=== PATIENT | male | born 1985 | race Hispanic/Latino ===

== ENCOUNTER 2022-09-14 02:20 | Emergency (ER) | payer OTHER ==
[~2022-09-14] VITALS: Ht 180.3 cm; Wt 175.1 kg
[2022-09-14] MEDS ORDERED: BUPIVACAINE/PF 0.5% 10ML VIAL IJ STA (02:44)
[2022-09-14] MEDS ORDERED: KETOROLAC 60 MG VIAL (30MG/ML) IM ONE (03:00)
[2022-09-14] MEDS ORDERED: TRIAMCINOLONE ACETONIDE 40 MG/ML 1ML VIAL SQ ONE (03:00)
[2022-09-14] MEDS ORDERED: BUPIVACAINE/PF 0.5% 30ML VIAL ONE (03:12)
[2022-09-14] MEDS ORDERED: CYCL10TA16 PO (03:53)
[2022-09-14] MEDS ORDERED: IBUP-2071 PO (03:53)
[2022-09-14 03:55] VITALS: BP 136/79
== END 2022-09-14 04:31 | disposition home or self-care (01) ==
LOC: EDH 02:20
DX: M54.9 Dorsalgia, unspecified (principal); M54.30 Sciatica, unspecified side; E11.9 Type 2 diabetes mellitus without complications; E66.09 Other obesity due to excess calories; Z68.43 Body mass index [BMI] 50.0-59.9, adult
CPT/HCPCS: 99284; 20552; 96372; J3301; J1885; J3490

== ENCOUNTER 2022-09-16 23:18 | Emergency (ER) | payer OTHER ==
[~2022-09-16] VITALS: Ht 180.3 cm; Wt 178.7 kg
[~2022-09-16 23:18] MED LIST: CYCL10TA16 PO; IBUP-2071 PO
[2022-09-16 23:19] VITALS: BP 141/86
[2022-09-16] MEDS ORDERED: ACET-2079 PO (23:46)
[2022-09-17] MEDS ORDERED: KETOROLAC 30MG VIAL (30MG/ML) IM ONE
[2022-09-17] MEDS ORDERED: ACETAMINOPHEN WITH CODEINE 1 TAB TAB PO ONE
[2022-09-17] MEDS ORDERED: TRAMADOL HCL 50 MG TABLET PO ONE
== END 2022-09-17 00:04 | disposition home or self-care (01) ==
LOC: EDH 23:18
DX: M54.41 Lumbago with sciatica, right side (principal); F41.9 Anxiety disorder, unspecified; E11.9 Type 2 diabetes mellitus without complications; E66.9 Obesity, unspecified; Z79.1 Long term (current) use of non-steroidal anti-inflammatories (NSAID); Z68.43 Body mass index [BMI] 50.0-59.9, adult
CPT/HCPCS: 99283; 96372; J1885

== ENCOUNTER 2022-09-23 00:31 | Emergency (ER) | payer OTHER ==
[~2022-09-23] VITALS: Ht 180.3 cm; Wt 176.5 kg
[~2022-09-23 00:31] MED LIST changes: +ACET-2079 PO
[2022-09-23 00:36] VITALS: BP 154/91
[2022-09-23] MEDS ORDERED: IBUP-1493 PO (01:18)
[2022-09-23] MEDS ORDERED: CYCL-309 PO (01:18)
[2022-09-23] MEDS ORDERED: MECL-262 PO (01:19)
== END 2022-09-23 01:39 | disposition home or self-care (01) ==
LOC: EDH 00:31
DX: M54.6 Pain in thoracic spine (principal); R42 Dizziness and giddiness; E11.9 Type 2 diabetes mellitus without complications; E66.9 Obesity, unspecified; Z79.1 Long term (current) use of non-steroidal anti-inflammatories (NSAID); Z82.49 Family history of ischemic heart disease and other diseases of the circulatory system; Z68.43 Body mass index [BMI] 50.0-59.9, adult

== ENCOUNTER 2022-09-28 01:27 | Emergency (ER) | payer BC, OTHER ==
[~2022-09-28] VITALS: Ht 177.8 cm; Wt 175.1 kg
[~2022-09-28 01:27] MED LIST changes: +CYCL-309 PO; +IBUP-1493 PO; +MECL-262 PO
[2022-09-28] MEDS ORDERED: FAMOTIDINE 20MG VIAL IV ONE (02:00)
[2022-09-28] MEDS ORDERED: 0.9%NACL 1000ML 1,000 ML IV ONE (02:00)
[2022-09-28 02:01] LABS: BASOPHILS % (AUTO) 0.5 % (0.0-5.0); EOSINOPHILS % (AUTO) 0.7 % (0.0-8.0); HEMATOCRIT 41.5 % (42-54); LYMPHOCYTES % (AUTO) 32.7 % (21.0-51.0); MEAN CORPUSCULAR HEMOGLOBIN 26.6 pg (27.0-33.0); MEAN CORPUSCULAR HGB CONC 32.5 g/dL (32.0-36.0); MEAN CORPUSCULAR VOLUME 81.7 fL (79-99); MONOCYTES % (AUTO) 4.9 % (3.0-13.0); NEUTROPHILS % (AUTO) 60.8 % (40.0-77.0); PLATELET COUNT (AUTO) 400 K/uL (130-400); RED BLOOD CELL COUNT(AUTO) 5.08 MIL/uL (4.50-6.20); RED CELL DISTRIBUTION WIDTH 14.1 % (11.0-15.5); WHITE BLOOD COUNT (AUTO) 11.2 K/uL (4.8-10.8)
[2022-09-28 02:10] LABS: APPEARANCE,URINE CLEAR (CLEAR); BILIRUBIN,URINE NEGATIVE (NEGATIVE); COLOR,URINE LIGHT-YELLOW (YELLOW); CREATININE 0.9 mg/dL (0.5-1.5); GLUCOSE, URINE (UA) 30 mg/dL (NEGATIVE); KETONES,URINE NEGATIVE (NEGATIVE); LEUKOCYTE ESTERASE ,URINE NEGATIVE Leu/uL (NEGATIVE); NITRATE,URINE NEGATIVE (NEGATIVE); OCCULT BLOOD,URINE NEGATIVE (NEGATIVE); PH,URINE 5.5 (5.0-8.0); POTASSIUM 4.2 mmol/L (3.5-5.1); PROTEIN,URINE NEGATIVE (NEGATIVE); UROBILINOGEN,URINE 0.2 mg/dL (0.2-1.0)
[2022-09-28 02:15] LABS: ALBUMIN 3.1 g/dL (3.5-5.0); TOTAL PROTEIN, SERUM 7.4 g/dL (6.0-8.3)
[2022-09-28] MEDS ORDERED: LOPE2CAP PO (02:55)
[2022-09-28 02:58] VITALS: BP 132/74
[2022-09-28] MEDS ORDERED: LOPERAMIDE HCL 2 MG CAP PO ONE (03:00)
== END 2022-09-28 03:04 | disposition home or self-care (01) ==
LOC: EDH 01:27
DX: K52.9 Noninfective gastroenteritis and colitis, unspecified (principal); E11.9 Type 2 diabetes mellitus without complications; Z79.899 Other long term (current) drug therapy; Z98.890 Other specified postprocedural states
CPT/HCPCS: 99284; 96374; 80053; 83690; 85025; 81003; 36415; J3490

== ENCOUNTER 2022-10-15 23:40 | Emergency (ER) | payer BC ==
[~2022-10-15] VITALS: Ht 180.3 cm; Wt 176.0 kg
[~2022-10-15 23:40] MED LIST changes: +LOPE2CAP PO
[2022-10-16] MEDS ORDERED: KETOROLAC 30MG VIAL (30MG/ML) IM ONE (00:30)
[2022-10-16] MEDS ORDERED: CYCLOBENZAPRINE HCL 10 MG TABLET PO ONE (00:30)
[2022-10-16] MEDS ORDERED: CYCL-309 PO (03:18)
[2022-10-16] MEDS ORDERED: IBUP-1493 PO (03:18)
[2022-10-16 03:24] VITALS: BP 132/74
== END 2022-10-16 03:38 | disposition home or self-care (01) ==
LOC: EDH 23:40
DX: M54.50 Low back pain, unspecified (principal); E11.9 Type 2 diabetes mellitus without complications; Z79.1 Long term (current) use of non-steroidal anti-inflammatories (NSAID); W18.39XA Other fall on same level, initial encounter; Y93.89 Activity, other specified; Y92.89 Other specified places as the place of occurrence of the external cause; Y99.8 Other external cause status
CPT/HCPCS: 99284; 72128; 96372; J1885

== ENCOUNTER 2023-01-23 19:06 | Emergency (ER) | payer BC ==
[~2023-01-23] VITALS: Ht 180.3 cm; Wt 175.1 kg
[2023-01-23] MEDS ORDERED: GABA300C PO (19:54)
[2023-01-23] MEDS ORDERED: CYCL-309 PO (19:54)
[2023-01-23] MEDS ORDERED: IBUP-1493 PO (19:54)
[2023-01-23] MEDS ORDERED: LIDOCAINE 5% TOPICAL PATCH TP ONE (20:00)
[2023-01-23] MEDS ORDERED: KETOROLAC 60 MG VIAL (30MG/ML) IM ONE (20:00)
[2023-01-23 21:08] VITALS: BP 135/81; PULSE 75; RESP 17; O2SAT 98
[2023-01-23] MEDS ORDERED: LIDOP TD (21:13)
== END 2023-01-23 21:20 | disposition home or self-care (01) ==
LOC: EDH 19:06
DX: M54.50 Low back pain, unspecified (principal); E11.9 Type 2 diabetes mellitus without complications; Z79.1 Long term (current) use of non-steroidal anti-inflammatories (NSAID); Z79.899 Other long term (current) drug therapy
CPT/HCPCS: 99284; 72110; 96372; J1885

== ENCOUNTER 2023-07-19 18:24 | Emergency (ER) | payer BC, OTHER ==
[~2023-07-19] VITALS: Ht 180.3 cm; Wt 166.9 kg
[~2023-07-19 18:24] MED LIST changes: +GABA300C PO; +LIDOP TD
[2023-07-19 19:21] LABS: ADD UA MICROSCOPIC YES; APPEARANCE,URINE CLEAR (CLEAR); BILIRUBIN,URINE NEGATIVE (NEGATIVE); COLOR,URINE YELLOW (YELLOW); GLUCOSE, URINE (UA) >=1000 mg/dL (NEGATIVE); KETONES,URINE NEGATIVE (NEGATIVE); LEUKOCYTE ESTERASE ,URINE NEGATIVE Leu/uL (NEGATIVE); NITRATE,URINE NEGATIVE (NEGATIVE); OCCULT BLOOD,URINE NEGATIVE (NEGATIVE); PH,URINE 5.5 (5.0-8.0); PROTEIN,URINE 20 mg/dL (NEGATIVE); UROBILINOGEN,URINE 0.2 mg/dL (0.2-1.0)
[2023-07-19 19:25] LABS: BACTERIA,URINE FEW /HPF (None Seen); MUCUS,URINE MANY LPF (None Seen); RBC,URINE 0-1 /HPF (0-1); SQUAMOUS EPITHELIAL CELL,UR FEW /HPF (0-2)
[2023-07-19 19:47] LABS: BASOPHILS # (AUTO) 0.05 K/uL (0.00-0.20); BASOPHILS % (AUTO) 0.5 % (0.0-5.0); EOSINOPHILS # (AUTO) 0.22 K/uL (0.00-0.70); EOSINOPHILS % (AUTO) 2.1 % (0.0-8.0); HEMATOCRIT 43.1 % (42-54); IMMATURE GRANULOCYTE ABSOLUTE 0.06 K/uL (0-1); LYMPHOCYTES # (AUTO) 2.8 K/uL (1.0-4.8); LYMPHOCYTES % (AUTO) 26.6 % (21.0-51.0); MEAN CORPUSCULAR HEMOGLOBIN 25.9 pg (27.0-33.0); MONOCYTES # (AUTO) 0.5 K/uL (0.1-1.0); MONOCYTES % (AUTO) 4.7 % (3.0-13.0); NEUTROPHILS % (AUTO) 65.5 % (40.0-77.0); PLATELET COUNT (AUTO) 473 K/uL (130-400); RED BLOOD CELL COUNT(AUTO) 5.32 MIL/uL (4.50-6.20); RED CELL DISTRIBUTION WIDTH 14.5 % (11.0-15.5); WHITE BLOOD COUNT (AUTO) 10.6 K/uL (4.8-10.8)
[2023-07-19 20:02] LABS: CREATININE 0.9 mg/dL (0.5-1.5); POTASSIUM 4.1 mmol/L (3.5-5.1)
[2023-07-19 21:14] VITALS: BP 132/78; PULSE 78; RESP 18; O2SAT 98
[2023-07-19] MEDS ORDERED: IBUP-2077 PO (21:30)
== END 2023-07-19 21:55 | disposition home or self-care (01) ==
LOC: EDH 18:24
DX: R59.0 Localized enlarged lymph nodes (principal); E11.65 Type 2 diabetes mellitus with hyperglycemia; R81 Glycosuria; Z79.1 Long term (current) use of non-steroidal anti-inflammatories (NSAID); Z79.899 Other long term (current) drug therapy
CPT/HCPCS: 36415; 76882; 80048; 81001; 85025

== ENCOUNTER 2023-08-08 19:00 | Emergency (ER) | payer BC, OTHER ==
[~2023-08-08] VITALS: Ht 180.3 cm; Wt 163.7 kg
[~2023-08-08 19:00] MED LIST changes: +IBUP-2077 PO
[2023-08-08 19:29] LABS: BASOPHILS # (AUTO) 0.05 K/uL (0.00-0.20); BASOPHILS % (AUTO) 0.3 % (0.0-5.0); EOSINOPHILS # (AUTO) 0.15 K/uL (0.00-0.70); HEMATOCRIT 43.5 % (42-54); IMMATURE GRANULOCYTE ABSOLUTE 0.05 K/uL (0-1); LYMPHOCYTES # (AUTO) 2.8 K/uL (1.0-4.8); LYMPHOCYTES % (AUTO) 18.4 % (21.0-51.0); MEAN CORPUSCULAR HEMOGLOBIN 26.3 pg (27.0-33.0); MEAN CORPUSCULAR HGB CONC 32.4 g/dL (32.0-36.0); MONOCYTES # (AUTO) 0.5 K/uL (0.1-1.0); MONOCYTES % (AUTO) 3.4 % (3.0-13.0); NEUTROPHILS # (AUTO) 11.8 K/uL (1.8-7.7); NEUTROPHILS % (AUTO) 76.6 % (40.0-77.0); PLATELET COUNT (AUTO) 479 K/uL (130-400); RED BLOOD CELL COUNT(AUTO) 5.37 MIL/uL (4.50-6.20); WHITE BLOOD COUNT (AUTO) 15.4 K/uL (4.8-10.8)
[2023-08-08 19:43] LABS: CREATININE 0.9 mg/dL (0.5-1.5); POTASSIUM 3.8 mmol/L (3.5-5.1)
[2023-08-08 19:44] LABS: ADD UA MICROSCOPIC YES; APPEARANCE,URINE CLEAR (CLEAR); BILIRUBIN,URINE NEGATIVE (NEGATIVE); COLOR,URINE LIGHT-YELLOW (YELLOW); GLUCOSE, URINE (UA) >=1000 mg/dL (NEGATIVE); KETONES,URINE 5 mg/dL (NEGATIVE); LEUKOCYTE ESTERASE ,URINE NEGATIVE Leu/uL (NEGATIVE); NITRATE,URINE NEGATIVE (NEGATIVE); OCCULT BLOOD,URINE NEGATIVE (NEGATIVE); PH,URINE 5.5 (5.0-8.0); PROTEIN,URINE 10 mg/dL (NEGATIVE); UROBILINOGEN,URINE 0.2 mg/dL (0.2-1.0)
[2023-08-08 19:50] LABS: ALBUMIN 3.4 g/dL (3.5-5.0); BILIRUBIN,TOTAL 0.3 mg/dL (0.2-1.0); TOTAL PROTEIN, SERUM 7.6 g/dL (6.0-8.3)
[2023-08-08 20:15] LABS: BACTERIA,URINE FEW /HPF (None Seen); MUCUS,URINE FEW LPF (None Seen); RBC,URINE 0-1 /HPF (0-1); SQUAMOUS EPITHELIAL CELL,UR FEW /HPF (0-2)
[2023-08-08 22:16] VITALS: BP 155/87; PULSE 109; RESP 18; O2SAT 99
[2023-08-08 23:00] LABS: SARS-CoV-2, RNA, NAAT NEGATIVE SARS CoV-2 (NEGATIVE)
[2023-08-08] MEDS ORDERED: MORPHINE 2 MG SYG IVP ONE (23:00)
[2023-08-08 23:05] LABS: INFLUENZA TYPE A Negative For Type A (NEGATIVE); INFLUENZA TYPE B Negative For Type B (NEGATIVE)
[2023-08-08 23:12] LABS: RAPID GROUP A STREP positive (NEGATIVE)
[2023-08-08] MEDS ORDERED: METO-296 PO (23:52)
[2023-08-08] MEDS ORDERED: PENI500T2 PO (23:52)
[2023-08-09] MEDS: FAMOTIDINE 20MG VIAL IV ONE (00:08)
[2023-08-09] MEDS: CEFTRIAXONE 2GM VIAL IVPB ONE (00:08)
[2023-08-09] MEDS: METOCLOPRAMIDE 10 MG/2 ML VIAL IVP ONE (00:08)
[2023-08-09] MEDS: 0.9%NACL 1000ML 1,000 ML IV ONE (00:08)
== END 2023-08-09 00:50 | disposition home or self-care (01) ==
LOC: EDH 19:00
DX: J02.0 Streptococcal pharyngitis (principal); K76.0 Fatty (change of) liver, not elsewhere classified; E11.9 Type 2 diabetes mellitus without complications; Z79.1 Long term (current) use of non-steroidal anti-inflammatories (NSAID); Z79.899 Other long term (current) drug therapy; Z20.822 Contact with and (suspected) exposure to COVID-19
CPT/HCPCS: 99284; 74176; 71045; 87635; 82550; 84484; 80053; 83690; 85025; 87880; 87804 ×2; 81001; 36415; 93005; 96365; 96375; J3490; J7030; J0696; J2765

== ENCOUNTER 2024-03-14 19:37 | Emergency (ER) | payer BC, OTHER ==
[~2024-03-14] VITALS: Ht 180.3 cm; Wt 157.4 kg
[~2024-03-14 19:37] MED LIST changes: +METO-296 PO; +PENI500T2 PO
[2024-03-14 20:45] LABS: RAPID GROUP A STREP negative (NEGATIVE)
[2024-03-14 21:08] LABS: INFLUENZA TYPE A NEGATIVE FOR TYPE A (NEGATIVE); INFLUENZA TYPE B NEGATIVE FOR TYPE B (NEGATIVE)
[2024-03-14 21:11] VITALS: BP 138/78; PULSE 92; RESP 18; TEMP 98.3; O2SAT 99
[2024-03-14 21:12] LABS: COVID19 (SARS ANTIGEN RAPID) PRESUMPTIVE NEGATIVE (NEGATIVE)
[2024-03-14] MEDS ORDERED: ALBUHFA IH (21:16)
== END 2024-03-14 21:46 | disposition home or self-care (01) ==
LOC: EDH 19:37
DX: J06.9 Acute upper respiratory infection, unspecified (principal); B97.89 Other viral agents as the cause of diseases classified elsewhere; E11.9 Type 2 diabetes mellitus without complications; Z20.822 Contact with and (suspected) exposure to COVID-19; Z79.899 Other long term (current) drug therapy
CPT/HCPCS: 71045; 87426; 87804; 87880

== ENCOUNTER 2024-04-23 21:46 | Emergency (ER) | payer BC, OTHER ==
[~2024-04-23] VITALS: Ht 180.3 cm; Wt 156.0 kg
[~2024-04-23 21:46] MED LIST changes: +ALBUHFA IH
[2024-04-23 23:44] VITALS: BP 157/88; PULSE 87; RESP 17; TEMP 97.8; O2SAT 96
[2024-04-24] MEDS ORDERED: CIPR500T10 PO (00:08)
== END 2024-04-24 00:19 | disposition home or self-care (01) ==
LOC: EDH 21:46
DX: S99.821A Other specified injuries of right foot, initial encounter (principal); E11.9 Type 2 diabetes mellitus without complications; E66.01 Morbid (severe) obesity due to excess calories; Z79.1 Long term (current) use of non-steroidal anti-inflammatories (NSAID); Z79.899 Other long term (current) drug therapy; W22.8XXA Striking against or struck by other objects, initial encounter; Y93.89 Activity, other specified; Y92.89 Other specified places as the place of occurrence of the external cause; Y99.8 Other external cause status
CPT/HCPCS: 73630

== ENCOUNTER 2024-06-30 19:31 | Emergency (ER) | payer BC, OTHER ==
[~2024-06-30] VITALS: Ht 162.6 cm; Wt 160.1 kg
[~2024-06-30 19:31] MED LIST changes: +CIPR500T10 PO
--- NOTE | 2024-06-30 20:18 | HMCIMG ---
SHOULDER COMP 2+VWS LT CLINICAL HISTORY: pain COMPARISON: None TECHNIQUE: 2 images were obtained. FINDINGS: No obvious fracture or dislocation. No joint effusion. The soft tissues appear unremarkable. No radiopaque foreign bodies. IMPRESSION: No acute findings.
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
[2024-06-30] MEDS ORDERED: NAPR-1505 PO (20:26)
[2024-06-30 21:24] VITALS: BP 120/75; PULSE 90; RESP 16; TEMP 98.3; O2SAT 98
[2024-06-30] MEDS: ORPHENADRINE 60MG/2ML IM ONE (21:30)
[2024-06-30] MEDS: TRIAMCINOLONE ACETONIDE 40 MG/ML 1ML VIAL IM ONE (21:32)
== END 2024-06-30 21:43 | disposition home or self-care (01) ==
LOC: EDH 19:31
DX: S46.812A Strain of other muscles, fascia and tendons at shoulder and upper arm level, left arm, initial encounter (principal); E11.9 Type 2 diabetes mellitus without complications; Z79.1 Long term (current) use of non-steroidal anti-inflammatories (NSAID); Z79.899 Other long term (current) drug therapy; X58.XXXA Exposure to other specified factors, initial encounter; Y93.89 Activity, other specified; Y92.89 Other specified places as the place of occurrence of the external cause; Y99.8 Other external cause status
CPT/HCPCS: 99284; 73030; 96372 ×2; J3301; J2360

== ENCOUNTER 2024-07-12 17:41 | Emergency (ER) | payer BC ==
[~2024-07-12] VITALS: Ht 180.3 cm; Wt 154.2 kg
[~2024-07-12 17:41] MED LIST changes: +NAPR-1505 PO
--- NOTE | 2024-07-12 17:48 | ERN ---
ED Note History of Present Illness Stated Complaint: LEFT SHOULDER PAIN Chief Complaint: Shoulder Injury/Pain Time Seen by MD: 17:44 Dictation: Patient is a 38-year-old male here with left anterior deltoid pain that radiates down the medial left bicep onset for four weeks. He states he was carrying a car battery when he felt the pain. States he has already been to see his primary care doctor put him on baclofen and is trying to get him to see a orthopedic surgeon however it has been difficult. He states he is currently taken baclofen only for pain said it is not helping. Allergies: Coded Allergies: No Known Drug Allergies (Unverified Allergy, Unknown, 09/14/22) Home Meds Active Scripts Naproxen (Naproxen) 375 Mg Tablet.dr, 375 MG PO BID for 7 Days, #14 TAB Prov:BRADY RIVAS MD 06/30/24 Ciprofloxacin HCl (Ciprofloxacin HCl) 500 Mg Tablet, 1 TAB PO BID for 7 Days, #14 TAB 0 Refills Prov:ARASELI MEJIA MD 04/24/24 Albuterol Sulfate (Ventolin Hfa/Proventil Hfa/Proair Hfa) 90 Mcg Puff, 1-2 PUFF IH Q4H for 5 Days, #1 INH 0 Refills PHARMACY TO DISPENSE 1 INHALER FOR USE Prov:GINETTE BRIONES 03/14/24 Metoclopramide HCl (Reglan) 10 Mg Tablet, 10 MG PO QIDP PRN for NAUSEA, #30 TAB 2 Refills Prov:SHERRON GEE Sr., MD 08/08/23 Penicillin V Potassium (Penicillin V Potassium) 500 Mg Tablet, 1 TAB PO QID for 10 Days, #40 TAB 0 Refills Prov:SHERRON GEE Sr., MD 08/08/23 Ibuprofen (Ibuprofen 800 mg Tab) 800 Mg Tab, 800 MG PO Q8H PRN for fever or pain, #30 TAB 0 Refills Prov:YOBANI QUINONES NP 07/19/23 Lidocaine (Lidoderm Patch 5%) 1 Patch Patch, 1 PATCH TD DAILY for 30 Days, #30 ADH.PATCH 0 Refills Prov:BERNARDO SCHAFFER MD 01/23/23 Cyclobenzaprine HCl (Cyclobenzaprine HCl) 10 Mg Tablet, 10 MG PO TIDP PRN for PAIN, #30 TAB Prov:BERNARDO SCHAFFER MD 01/23/23 Ibuprofen (Motrin/Advil) 800 Mg Tab, 800 MG PO TID, #30 TAB Prov:BERNARDO SCHAFFER MD 01/23/23 Gabapentin (Neurontin) 300 Mg Capsule, 300 MG PO TID, #60 CAP Prov:BERNARDO SCHAFFER MD 01/23/23 Cyclobenzaprine HCl (Cyclobenzaprine HCl) 10 Mg Tablet, 10 MG PO TIDP PRN for PAIN, #30 TAB Prov:BERNARDO SCHAFFER MD 10/16/22 Ibuprofen (Motrin/Advil) 800 Mg Tab, 800 MG PO TID, #30 TAB Prov:BERNARDO SCHAFFER MD 10/16/22 Loperamide HCl (Loperamide) 2 Mg Capsule, 2 MG PO QID for loose stools, #30 CAP Prov:MIRIAN RIBEIRO MD 09/28/22 Meclizine HCl (Antivert) 25 Mg Tab.chew, 25 MG PO TIDP PRN for VERTIGO, #50 TAB.CHEW Prov:BERNARDO SCHAFFER MD 09/23/22 Cyclobenzaprine HCl (Cyclobenzaprine HCl) 10 Mg Tablet, 10 MG PO TID, #30 TAB Prov:BERNARDO SCHAFFER MD 09/23/22 Ibuprofen (Motrin/Advil) 800 Mg Tab, 800 MG PO TIDP PRN for PAIN, #30 TAB Prov:BERNARDO SCHAFFRE MD 09/23/22 Acetaminophen with Codeine (Acetaminophen-Cod #3 Tablet) 1 Each Tablet, 1 TAB PO Q4H PRN for PAIN, #7 TAB Prov:VLADIMIR MCLEAN [employer] 09/16/22 Cyclobenzaprine HCl (Flexeril) 10 Mg Tab, 10 MG PO TID for 10 Days, #30 TAB Prov:MARYSOL YEAGER MD 09/14/22 Ibuprofen (Ibuprofen) 800 Mg Tablet, 800 MG PO Q8H PRN for PAIN, #30 TAB Prov:MARYSOL YEAGER MD 09/14/22 Past Medical History Past Medical History: Diabetes-Type II Additional Past Medical Hx: HX OF SCIATIC NERVE PAIN, HERNIATED DISK IN BACK Surgical History: None Family History: HTN Social History: Negative, Lives with family RN Note Reviewed/Agreed w/PFSH: Yes Review of System Dictation CONSTITUTIONAL: NEGATIVE EXCEPT FOR HPI HEAD/FACE: NEGATIVE EXCEPT FOR HPI EENT: NEGATIVE EXCEPT FOR HPI RESPIRATORY: NEGATIVE EXCEPT FOR HPI GASTROINTESTINAL/ABDOMINAL: NEGATIVE EXCEPT FOR HPI GENITOURINARY: NEGATIVE EXCEPT FOR HPI MUSCULOSKELETAL: NEGATIVE EXCEPT FOR HPI LEFT ANTERIOR SHOULDER PAIN RUNNING DOWN LEFT MEDIAL BICEPS INTEGUMENTARY: NEGATIVE EXCEPT FOR HPI NEUROLOGICAL/PSYCH: NEGATIVE EXCEPT FOR HPI HEMATOLOGIC/LYMPHATIC: NEGATIVE EXCEPT FOR HPI ALL SYSTEMS NEGATIVE, EXCEPT NOTED ABOVE. 13 POINT REVIEW OF SYSTEMS ASSESSED AND ALL NEGATIVE EXCEPT FOR ABOVE. Initial Vital Sign VS Vital Signs Date Time Temp Pulse Resp B/P (MAP) Pulse Ox O2 Delivery O2 Flow Rate FiO2 07/12/24 17:43 97.9 94 16 132/93 99 Room Air 0 Physical Exam Dictation VITAL SIGNS REVIEWED GENERAL APPEARANCE: ALERT, ORIENTED X 3, MILD ACUTE DISTRESS, WELL DEVELOPED, NOURISHED. OBESE HEAD AND FACE: NON-TRAUMATIC. EYES: PERRL, PINK CONJUNCTIVAS, EYELID NO TRAUMA, ANTERIOR CHAMBER WITH ARCUS SENILIS. EARS: PINNAS INTACT AND NO SIGNS OF TRAUMA OR ERYTHEMA EAR CANALS CLEAR AND NO DISCHARGE TM NO ERYTHEMA NOSE: NO DISCHARGE, NO BLEEDING. OROPHARYNX: MOUTH NORMAL, TONGUE PINK, PHARYNX CLEAR,NO ERYTHEMA, TONSILS NO EXUDATES, NO ABSCESSES NOTED, MUCOUS MEMBRANE MOIST NECK: SUPPLE, NON-TENDER, NO THYROMEGALY, NO MASSES, NO JVD, NO BRUITS BREAST:DEFERRED CHEST:NO TENDERNESS, NO CREPITUS, NO PARADOXICAL MOVEMENT, NO RETRACTIONS LUNGS:CLEAR, WELL-VENTILATED, SYMMETRIC, NO RALES, NO WHEEZING, NO RHONCHI, NO STRIDOR, GOOD BREATH SOUNDS BILATERALLY HEART: REGULAR RATE, REGULAR RHYTHM, NO MURMUR, NO GALLOPS VASCULAR: NO PERIPHERAL EDEMA, ABDOMEN: SOFT, POSITIVE BOWEL SOUNDS, NONDISTENDED, NO GUARDING, NONTENDER, NO REBOUND, NO MASSES NO HEPATOMEGALY, NO SPLENOMEGALY, NO OLVIER'S SIGN, NO HERNIAS. RECTAL: DEFERRED GENITAL: DEFERRED NEUROLOGICAL: NORMAL SPEECH, MOTOR FUNCTION INTACT, SENSORY FUNCTION INTACT MUSCULOSKELETAL: NECK NONTENDER, FULL RANGE OF MOTION, BACK NONTENDER, FULL RANGE OF MOTION, EXTREMITIES: MILD LEFT ANTERIOR DELTOID TENDERNESS WITHOUT ANTERIOR FULLNESS OR PROBABLE DISLOCATION. DECREASED RANGE OF MOTION SECONDARY TO PAIN SKIN: COLOR PINK, DRY, NO TURGOR, NO RASH, NO LACERATIONS, NO ABRASIONS, NO C ONTUSIONS. LYMPHATIC: DEFERRED Results (Laboratory/Radiology) Laboratory/Radiology LEFT SHOULDER RADIOGRAPHS - 2-3 VIEWS INDICATION: Pain COMPARISON: None FINDINGS: No evidence for acute fracture or dislocation. Acromioclavicular and glenohumeral alignments are well maintained. Visible portions of the left clavicle are intact. IMPRESSION: No evidence for fracture or dislocation. Labs Reviewed?: Yes ED Course ED Course Orders Procedure Category Date Status Time Shoulder Comp 2+Vws Lt RAD 07/12/24 Resulted 17:46 Cyclobenzaprine Hcl PHA 07/12/24 Complete (Cyclobenzaprine Hcl 18:00 Ketorolac 60mg/2ml PHA 07/12/24 Complete (Toradol 60mg/2ml) 18:00 Sling NELLIE 07/12/24 Transmitted 18:48 Current Medications Medications (Trade) Dose Ordered Sig/Jose Route PRN Reason Start Time Stop Time Status Last Admin Dose Admin Cyclobenzaprine HCl (Cyclobenzaprine HCl) 10 mg ONCE ONCE PO 07/12/24 18:00 07/12/24 18:01 DC 07/12/24 18:13 Ketorolac Tromethamine (toRADol 60MG/ 2ML) 60 mg ONCE ONCE IM 07/12/24 18:00 07/12/24 18:01 DC 07/12/24 18:13 Vital Signs Date Time Temp Pulse Resp B/P (MAP) Pulse Ox O2 Delivery O2 Flow Rate FiO2 07/12/24 17:43 97.9 94 16 132/93 99 Room Air 0 EIGHTEEN 50, PATIENT PLACED IN SLING AFTER X-RAY WAS NEGATIVE. HE WILL BE REFERRED TO DR. MARTINEZ FOR EVALUATION. RECOMMENDED MRI Medical Decision Making MDM MEDICAL DISCHARGE MAKING BASED ON X-RAY OF LEFT SHOULDER AND PAIN MANAGEMENT. PATIENT HAS NEGATIVE X-RAY SLING PLACED AND PATIENT TOLD NO WEIGHT-BEARING UNTIL CLEARED WITH THE ORTHOPEDICS IBUPROFEN DX & DISP Disposition: Discharge Departure Impression: Primary Impression: Left shoulder strain Condition: Stable Scripts Ibuprofen (Ibuprofen 800 mg Tab) 800 Mg Tab 800 MG PO Q8H PRN for fever or pain, #30 TAB 0 Refills Prov: YOBANI QUINONES CERTIFIED PROSTHETIST VICE PRESIDENT 07/12/24 Additional Instructions: FOLLOW-UP WITH PRIMARY CARE PROVIDER IN 1 TO 2 DAYS. TAKE MEDICATIONS DIRECTED HERE IN THE EMERGENCY ROOM. OKAY TO CONTINUE HOME MEDICATIONS UNLESS OTHERWISE DISCUSSED DURING YOUR VISIT IN THE EMERGENCY ROOM TODAY. RETURN TO YOUR NEAREST EMERGENCY ROOM IF SYMPTOMS WORSEN OR IF THERE IS NO IMPROVEMENT. CALL 911 IF YOU NEED IMMEDIATE ASSISTANCE. TAKE TYLENOL OR MOTRIN OVER-THE- COUNTER NEEDED AND IF NO CONTRAINDICATIONS ARE PRESENT. INCREASE ORAL HYDRATION. A WOUND CULTURE OR URINE CULTURE WAS ORDERED HERE IN THE EMERGENCY ROOM DEPARTMENT PLEASE FOLLOW-UP WITH PRIMARY CARE PROVIDER AND ADVISE THEM TO GET REPEAT PORTS FROM OUR FACILITY. IF YOU HAD ANY JOCELYNN WRAP/SPLINTS THAT WERE APPLIED HERE, PLEASE DO NOT REMOVE THEM UNTIL YOU SEE YOUR PRIMARY CARE OR SPECIALTY. SLING AND NO WEIGHT-BEARING TO LEFT SHOULDER UNTIL CLEARED BY ORTHOPEDIC SURGERY, CALL FOR AN APPOINTMENT TOMORROW. TAKE IBUPROFEN DIRECTED FOR PAIN. Referrals: KACIE NGO NP (PCP) YOLANDA MARTINEZ DO Time of Disposition: 18:50 I have reviewed the case, and I agree with, Diagnosis and Plan YOBANI QUINONES NP Jul 12, 2024 17:48
[2024-07-12] MEDS: ketOROlac 60 MG VIAL (30MG/ML) IM ONE (18:13)
[2024-07-12] MEDS: CYCLOBENZAPRINE HCL 10 MG TABLET PO ONE (18:13)
--- NOTE | 2024-07-12 18:27 | HMCIMG ---
LEFT SHOULDER RADIOGRAPHS - 2-3 VIEWS INDICATION: Pain COMPARISON: None FINDINGS: No evidence for acute fracture or dislocation. Acromioclavicular and glenohumeral alignments are well maintained. Visible portions of the left clavicle are intact. IMPRESSION: No evidence for fracture or dislocation.
[2024-07-12 19:20] VITALS: BP 142/85; PULSE 86; RESP 18; TEMP 97.6; O2SAT 100
== END 2024-07-12 19:24 | disposition home or self-care (01) ==
LOC: EDH 17:41
DX: S46.912A Strain of unspecified muscle, fascia and tendon at shoulder and upper arm level, left arm, initial encounter (principal); E11.9 Type 2 diabetes mellitus without complications; Z79.1 Long term (current) use of non-steroidal anti-inflammatories (NSAID); Z79.899 Other long term (current) drug therapy; X58.XXXA Exposure to other specified factors, initial encounter; Y93.89 Activity, other specified; Y92.89 Other specified places as the place of occurrence of the external cause; Y99.8 Other external cause status
CPT/HCPCS: 99284; 73030; 96372; J1885